=== PATIENT | female | born 1980 | race Caucasian/White ===

== ENCOUNTER 2018-05-10 08:26 | Emergency (ER) | payer OTHER ==
[2018-05-10 08:32] VITALS: BP 131/77
--- NOTE | 2018-05-10 09:17 | EDPHY ---
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 Today she was lifting objects overhead and felt immediate pain in her left shoulder particularly in the posterior aspect. She currently is reproducible pain in same location reproducible with range of motion and notes a new a new popping sensation. No paresthesia. No direct trauma or fall. No weakness. No prior history of shoulder injury or trauma. PHYSICAL EXAM (Prior to examination, patient consented to physical exam, hands were washed and my usual and customary physical exam procedures followed) 1) GENERAL: Well-developed, well-nourished, alert and oriented. Appears to be in no acute distress. 2) HEAD: Normocephalic 3) HEENT: Pupils equal, round, reactive to light bilaterally. 4) LUNGS: Breathing comfortably. 5) MUSCULOSKELETAL: Left upper extremity: Normal anatomic landmarks. No tenderness to palpation. Crepitus with range of motion noted. No weakness. Soft compartments. Normal coloration. 6) SKIN: Intact 7) VASCULAR: pulses and cap refill present are brisk 8) NEUROLOGIC: Radial, ulnar, median nerve function intact with no deficits appreciated on exam DIFFERENTIAL DIAGNOSIS: in no particular order including but not limited to fracture, sprain, compartment syndrome - Personal History LMP (Females 10-55): 1-7 Days Ago Current Tetanus/Diphtheria Vaccine: Yes - Medical/Surgical History Hx Asthma: No Hx Chronic Respiratory Disease: No Hx Diabetes: No Hx Cardiac Disease: No Hx Renal Disease: No Hx Cirrhosis: No Hx Alcoholism: No Other PMH: Denies - Social History Smoking Status: Never smoked Constitutional: Initial Vital Signs Temperature (C) 36.6 C 05/10/18 08:30 Heart Rate 87 05/10/18 08:30 Respiratory Rate 18 05/10/18 08:30 Blood Pressure 131/77 H 05/10/18 08:30 O2 Sat (%) 95 05/10/18 08:30 O2 Delivery Mode Room Air Allergies/Adverse Reactions: codeine Allergy (Verified 05/10/18 08:32) Home Medications: Medication Instructions Recorded NK [No Known Home Meds] 05/10/18 Medical Decision Making - Diagnostics Imaging Results: Imaging Impressions Shoulder X-Ray 05/10/18 08:59 Impression: 1. Moderate osteoarthritis in the left acromioclavicular joint. 2. No definite fracture or dislocation of the left shoulder. Images reviewed myself Procedures: Procedure: Splint A sling splint was applied by ER civil laboratory technician. After application of the splint I returned and re-examined the patient. The splint was adequately immobilizing the joint and distal to the splint the patient's circulation and sensation were intact. Patient shows no signs of compartment syndrome. Was given orthopedic precautions. ED Course/Re-evaluation: Patient I discussed limitations of x-ray, notably that non osseous injury is not ruled out. At this time I do not think that emergent MRI is indicated however this may be indicated on outpatient basis. This is a work comp related injury. Recommend follow up with Orthopedics and with her work comp provider. Placed in a sling. Tylenol Motrin for pain. Ice packs. Usual and customary orthopedic precautions and instructions provided. She feels comfortable being discharged. All questions and concerns addressed by myself. Care of patient under supervision of secondary supervising physician Dr Gila Martins. Departure - Departure Disposition: Home, Routine, Self-Care Clinical Impression: Sprain of left shoulder Condition: Good Instructions: Shoulder Sprain (ED) Additional Instructions: Return to the ER immediately if you experience discoloration, have worsening pain, numbness, tingling, or any other symptoms that concern you. If you received x-rays in the emergency department today, be advised, that ligamentous , tendon, muscular, and other non-bony injury cannot be fully ruled out. Try to keep your affected extremity elevated above the level of your chest, and keep cold packs on the affected area, for the next 48 hours. Pediatric Fever & Pain Control: For fever/pain control we recommend: Acetaminophen (Tylenol) 650mg every 4 to 6 hours as needed Ibuprofen (Advil, Motrin) 600mg every 6 to 8 hours as needed. *Acetaminophen and Ibuprofen may be given in alternating doses or at the same time for high fever. (NOTE TIME DIFFERENCES) NEVER GIVE ASPIRIN TO AN INFANT OR CHILD. WARNING: THESE MEDICATIONS COME IN DIFFERENT STRENGTHS FOR INFANTS AND CHILDREN. BEFORE GIVING YOUR CHILD A DOSE OF MEDICATION, MAKE SURE THAT YOU ARE GIVING THE APPROPRIATE AMOUNT. Measurements: 1 teaspoon=5ml 1/2 teaspoon =2.5ml Referrals: Jyoti Villagran MD [Medical Doctor] - 2-3 days, call for appt. Stand Alone Forms: Work Comp Follow Up
== END 2018-05-10 09:40 | disposition home or self-care (01) ==
DX: S43.402A Unspecified sprain of left shoulder joint, initial encounter (principal); M19.012 Primary osteoarthritis, left shoulder; X50.0XXA Overexertion from strenuous movement or load, initial encounter; Y93.F2 Activity, caregiving, lifting; Y99.0 Civilian activity done for income or pay
CPT/HCPCS: A4565